=== PATIENT | male | born 1995 | race African-American/Black ===

== ENCOUNTER 2019-09-14 12:50 | Emergency (ER) | payer MEDICAID ==
[2019-09-14] MEDS ORDERED: Ketorolac 60 MG/2 ML SDV IM ONE (14:10)
--- NOTE | 2019-09-14 14:16 | EDM.PDOC ---
ED HPI GENERAL MEDICAL PROBLEM - General Chief Complaint: Headache Stated Complaint: HEADACHE Time Seen by Provider: 09/14/19 13:38 Source of Information: Reports: Patient History Limitations: Reports: No Limitations - History of Present Illness INITIAL COMMENTS - FREE TEXT/NARRATIVE: Patient is a 24-year-old male who presents with complaints of intermittent headache for the last week. Currently rates pain 7 out of 10. He states the pain is consistently localized above his right eye. He denies any history of migraine. He has no associated dizziness, nausea, photosensitivity, photosensitivity with this headache. Denies any vision changes. Verbalized that the pain will go away intermittently using Tylenol or ibuprofen, however it eventually returns. He states that he was recently sick with a upper respiratory infection 2 weeks ago. He does continue to be congested and feels like he has pressure in his sinuses. Headache Pain Score (Numeric/FACES): 7 - Related Data Allergies Allergy/AdvReac Type Severity Reaction Status Date / Time No Known Allergies Allergy Verified 09/14/19 13:23 Home Meds: Home Meds Amoxicillin/Potassium Clav [Augmentin 875-125 Tablet] 1 each PO BID 7 Days #14 tablet 09/14/19 [Rx] Past Medical History - Past Health History Medical/Surgical History: Denies Medical/Surgical History - Infectious Disease History Infectious Disease History: Reports: None Social & Family History - Tobacco Use Smoking Status *Q: Never Smoker - Caffeine Use Caffeine Use: Reports: None - Recreational Drug Use Recreational Drug Use: No ED ROS GENERAL - Review of Systems Review Of Systems: Comprehensive ROS is negative, except as noted in HPI. - Physical Exam Exam: See Below Exam Limited By: No Limitations General Appearance: Alert, WD/WN, No Apparent Distress Eye Exam: Bilateral Eye: PERRL Head Exam: Atraumatic, Normocephalic, Sinus Tenderness (Frontal sinuses. Right more than left.) Respiratory/Chest: No Respiratory Distress, Lungs Clear, Normal Breath Sounds, No Accessory Muscle Use, Chest Non-Tender Cardiovascular: Normal Peripheral Pulses, Regular Rate, Rhythm, No Edema, No Gallop, No JVD, No Murmur, No Rub Neuro Exam (Abbreviated): Alert, Oriented, CN II-XII Intact, Normal Cognition, Normal Gait, Normal Reflexes, No Motor/Sensory Deficits Psychiatric: Normal Affect, Normal Mood Skin Exam: Warm, Dry, Intact, Normal Color, No Rash Course - Vital Signs Last Recorded V/S: Last Vital Signs Temp 98.8 F 09/14/19 13:21 Pulse 67 09/14/19 13:21 Resp 14 09/14/19 13:21 BP 143/84 H 09/14/19 13:21 Pulse Ox 99 09/14/19 13:21 - Orders/Labs/Meds Meds: Medications Discontinued Medications Generic Name Dose Route Start Last Admin Trade Name Brian PRN Reason Stop Dose Admin Ketorolac Tromethamine 60 mg 09/14/19 14:10 09/14/19 14:25 Toradol IM 09/14/19 14:11 60 mg ONETIME ONE Administration - Re-Assessments/Exams Free Text/Narrative Re-Assessment/Exam: 09/14/19 14:17 Based on exam, patiently likely has a bacterial sinusitis. I will give him a shot of Toradol 60 mg IM prior to being discharged. I have sent a prescription for Augmentin. Discharge instructions as noted Departure - Departure Time of Disposition: 14:18 Disposition: Home, Self-Care 01 Condition: Fair Clinical Impression: Sinusitis - Discharge Information *PRESCRIPTION DRUG MONITORING PROGRAM REVIEWED*: No *COPY OF PRESCRIPTION DRUG MONITORING REPORT IN PATIENT ZACK: No Prescriptions: Amoxicillin/Potassium Clav [Augmentin 875-125 Tablet] 1 each PO BID 7 Days #14 tablet Instructions: Sinusitis, Adult, [id number] Referrals: PCP,None [Primary Care Provider] - Forms: ED Department Discharge Additional Instructions: The emergency department today with recurrent headaches for the last week. On exam you are tender to your frontal sinuses. Given your history of a respiratory infection approximately 2 weeks ago and your continued congestion, it is likely that you are suffering from a bacterial sinusitis. While in ER, you received an injection of Toradol for your pain. A prescription for Augmentin has been sent to [facility]. Uses medication as prescribed. Continue to use [id number] Tylenol or ibuprofen as needed for any residual headache. Do not take a dose of ibuprofen for at least 6 hours after the medication you received in the emergency department today. If you should experience any new or worsening symptoms, or you fail to improve as expected, please not hesitate to return to the emergency department. Sepsis Event Note - Evaluation Sepsis Screening Result: No Definite Risk - Focused Exam Vital Signs: Vital Signs Temp Pulse Resp BP Pulse Ox 09/14/19 13:21 98.8 F 67 14 143/84 H 99 Date Exam was Performed: 09/14/19 Time Exam was Performed: 15:44
== END 2019-09-14 14:30 | disposition home or self-care (01) ==
LOC: JD.ED 12:50
DX: J32.9 Chronic sinusitis, unspecified (principal)
CPT/HCPCS: 96372; 99283; J1885